=== PATIENT | female | born 1960 | race Caucasian/White ===

== ENCOUNTER 2025-04-02 13:43 | Outpatient (AMB) | payer OTHER, SELFPAY ==
--- NOTE | 2025-04-02 13:48 | A.OFFPC_ITS ---
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: No Accompanied by: Self / Same As Patient Allergies Sulfa (Sulfonamide Antibiotics) Allergy (Intermediate, Verified 04/02/25 13:52) nephrotic syndrome Medication List - Last Reconciled 04/02/25 by Taylor Monterroso MD atorvastatin (Lipitor) 10 mg PO BEDTIME lisinopril 5 mg PO DAILY Tobacco use date assessed: 04/02/25 Dental Screening Dental Screen Date: 04/02/25 Did you have a dental visit in the last 12 months?: Yes Did you have a dental problem in the last 6 months where you did not have access to dental care?: No Was dental information given to patient?: Patient has dentist HPI HPI Comments History of Present Illness Details The patient is a 64 year old female presenting to [facility] and for an annual physical examination. Hyperlipidemia: The patient was prescribed Lipitor but only began taking it approximately one month ago. She delayed starting the medication due to a contraindication with an antiviral she took for a COVID-19 infection, followed by travel to [facility] for a family emergency. Her mom recently. Hypertension: The patient reports she is compliant with taking her prescribed blood pressure medication. History of colon polyps: The patient underwent a colonoscopy one year ago where polyps were discovered. She reports being advised to have a follow-up in five years,, however she notes in the past she was scheduled for a three-year interval. History of hand injury: The patient has lingering symptoms from a prior fall, which she describes as tendinitis with nerve damage rather than arthritis. She performs exercises for her hand and was previously told by a specialist that she was fine after the initial injury. Health Maintenance: The patient is due for a screening mammogram, having not had one since 2022, and has not had a recent gynecological exam. She confirms she is up-to-date with her Shingrix, COVID-19, and flu vaccinations, with her last tetanus shot in 2017. She has a history of glaucoma but was reassured by her roll repairer that her intraocular pressures were fine. She denies any family history of osteoporosis. [facility] Medical History (Updated 04/02/25 @ 23:00 by Taylor Monterroso MD) Routine medical exam Routine gynecological examination GERD (gastroesophageal reflux disease) Mixed hyperlipidemia Primary hypertension Tubular adenoma Vertigo Surgical History (Updated 04/02/25 @ 12:51 by Taylor Monterroso MD) H/O hand surgery History of tonsillectomy H/O: hysterectomy History of colonoscopy (~01/04/24) Family History (Updated 04/02/25 @ 12:54 by Taylor Monterroso MD) Other Colon cancer Colon polyp Social History Housing: House Patient Tobacco Use Status: Never used Tobacco e-Cigarette/Vaping Use: Never Used Current occupational status: employed 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 1. Little interest or pleasure in doing things: not at all 2. Feeling down, depressed, or hopeless: not at all 3. Trouble falling or staying asleep, or sleeping too much: not at all 4. Feeling tired or having little energy: not at all 5. Poor appetite or overeating: not at all 6. Feeling bad about yourself - or that you are a failure or have let yourself or your family down: not at all 7. Trouble concentrating on things, such as reading the newspaper or watching television: not at all 8. Moving or speaking so slowly that other people could have noticed. Or the opposite - being so fidgety or restless that you have been moving around a lot more than usual: not at all 9. Thoughts that you would be better off or of hurting yourself in some way: not at all Total score: 0 Depression Screening Interpretation: Negative Depression Screening Done: Yes 44538 - PHQ-9 Billing: Yes Source: Developed by Drs. Artur Gates, Jovana Goodman, Juan Jose Rosa and colleagues, with an educational kaci from [employer]. Thrive Questionnaire Date Thrive assessed: 04/02/25 I am a: Patient What is your living situation today?: I choose not to answer this question Within the past 12 months, did the food you bought not last and you didn't have the money to get more?: I choose not to answer this question Within the past 12 months, did you worry whether your food would run out before you got money to buy more?: I choose not to answer this question Do you have trouble paying for medicines?: No Do you have trouble getting transportation to medical appointments?: No Do you have trouble paying your heating and electricity bill?: No Do you have trouble taking care of your child, family member or friend?: I choose not to answer this question Do you have trouble with day-to-day activities such as bathing, preparing meals, shopping, managing finances, etc.?: No Are you currently unemployed and looking for a job?: No Are you interested in more education?: No Please select the resources that you would like help with: None Currently or been in a relationship where the following occur: No concerns reported THRIVE Score: 0 AUDIT C Alcohol Use Questionnaire (AUDIT-C) 1. How often do you have a drink containing alcohol?: Never 3. How often do you have six or more drinks on one occasion?: Never Total Score: 0 JOSIANE-7 AMB Questionnaire JOSIANE-7 Date JOSIANE - 7 assessed: 04/02/25 Feeling nervous, anxious, or on edge: 0 = Not at all Not being able to stop or control worryin = Not at all Worrying too much about different things: 0 = Not at all Trouble relaxin = Not at all Being so restless that it is hard to sit still: 0 = Not at all Becoming easily annoyed or irritable: 0 = Not at all Feeling afraid as if something awful might happen: 0 = Not at all Total JOSIANE-7 score (0-4 normal; 5-9 mild; 10-14 moderate; 15-21 severe): 0 Source: Developed by Drs. Artur Gates, Jovana Goodman, Juan Jose Rosa and colleagues, with an educational kaci from [employer]. Review of Systems Narrative Review of Systems - General: Reports feeling well. - Cardiovascular: Denies shortness of breath. - Respiratory: Denies wheezing. - Musculoskeletal: Reports persistent tendinitis and nerve contraction in hand. - Extremities: Denies leg swelling. - Neurological: Denies recent vertigo spells. Physical exam (Primary Care) Vital Signs: Last Vital Signs Temp 96.9 F 04/02/25 13:50 Pulse 86 04/02/25 13:50 Resp 16 04/02/25 13:50 BP 132/82 04/02/25 13:50 Pulse Ox 96 04/02/25 13:50 Oxygen Delivery Method Room Air 04/02/25 13:50 BMI result Body Mass Index 28.3 Tobacco/Smoking Status: Tobacco use Status Tobacco use date assessed 04/02/25 04/02/25 13:52 Patient Tobacco Use Status Never used Tobacco 04/02/25 13:56 e-Cigarette/Vaping Use Never Used 04/02/25 13:56 PHQ-9: PHQ-9 Score PHQ-9: Total score 0 04/02/25 22:58 Depression Screening Interpretation: Negative Thrive Assessment: Date of Thrive Assessment Date Thrive assessed 04/02/25 04/02/25 13:52 Currently or been in a relationship where the following occur: No concerns reported Narrative Physical Exam - Gen: NAD - HEENT: Bilateral ear canals are clear. Oropharynx is clear. - Neck: Supple with no carotid bruits. No tenderness on palpation. - Cardiovascular: Regular rate and rhythm with a soft murmur noted - Lungs: Clear to auscultation bilaterally; no wheezing. - Abdomen: Normal bowel sounds, soft, non-tender. - Extremities: No pitting edema noted in bilateral lower extremities. Coding Level of Care Code Est Pt Prev Care 40-64y(93532) Add On Preventative Visit Only Diagnoses Routine medical exam Z00.00 Primary hypertension I10 Mixed hyperlipidemia E78.2 Additional Codes PHQ-9 - 82065 - PHQ-9 Billing: Yes ([id number]) Assessment & Plan Assessment & Plan (1) Routine medical exam: Code(s): Z00.00 - Encounter for general adult medical examination without abnormal findings Category: Medical (2) Primary hypertension: Code(s): I10 - Essential (primary) hypertension Category: Medical (3) Mixed hyperlipidemia: Code(s): E78.2 - Mixed hyperlipidemia Category: Medical Plan Assessment and Plan 1. Health Maintenance - The patient is a 64-year-old female here to re-establish care and for an annual exam. - She is due for several health screenings. - The plan includes providing orders for a screening mammogram and a referral to gynecology. - We will order comprehensive labs, including a renal panel, CBC, liver labs, thyroid panel, hemoglobin A1c, and urine microalbumin to be done soon. - Her lipid panel will be checked in 3 months. - Her immunizations are up to date. 2. Hyperlipidemia - The patient has been non-adherent with her statin therapy, having only started Lipitor one month prior to the visit. - The plan is to renew her prescription for Lipitor and recheck her lipid panel in 3 months to assess for efficacy after a consistent period of use. 3. Hypertension - The patient reports being adherent to her medication. - Her blood pressure in the office was 132/82 mmHg. - The plan is to renew her Lisinopril prescription and check a renal panel and urine microalbumin to monitor for any end-organ effects. Plan - Will renew prescriptions for Lisinopril and Lipitor - An order for a screening mammogram will be provided. - A referral will be placed for a routine gynecological examination. - The patient is advised to complete the non-fasting labs (renal panel, CBC, LFTs, thyroid, A1c, urine microalbumin) soon, as she is overdue for renal monitoring. - The patient should wait approximately 3 months before completing the lipid panel to allow for consistent Lipitor use. - Follow up in 1 year or sooner depending on results. Patient Instructions - Continue taking your lisinopril for blood pressure and Lipitor for cholesterol as prescribed. 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 Orders: Orders Complete Blood Count Auto Diff Today E78.2 - Mixed hyperlipidemia, I10 - Essential (primary) hypertension Comprehensive Met. Panel Today E78.2 - Mixed hyperlipidemia, I10 - Essential (primary) hypertension TSH reflex Free T4 Today E78.2 - Mixed hyperlipidemia, I10 - Essential (primary) hypertension Hemoglobin A1c Today E78.2 - Mixed hyperlipidemia, I10 - Essential (primary) hypertension MM screening mammo BI Today Z12.31 - Encounter for screening mammogram for malignant neoplasm of breast Lipid Panel Today E78.2 - Mixed hyperlipidemia, I10 - Essential (primary) hypertension Microalbumin, Random (w Creat) Today E78.2 - Mixed hyperlipidemia, I10 - Essential (primary) hypertension Referrals MANAGER [employer]ATE[employer]ETING Referral Z01.419 - Encounter for gynecological examination (general) (routine) without abnormal findings Medications: New lisinopril 5 mg PO DAILY 90 tabs 3RF 90 days atorvastatin (Lipitor) 10 mg PO BEDTIME 90 tabs 3RF
[2025-04-02 13:50] VITALS: BP 132/82; PULSE 86; RESP 16; TEMP 36.1; O2SAT 96; BMI 28.3
== END 2025-04-02 14:37 | disposition home or self-care (01) ==
LOC: HO.HMCHD 13:44
PROVIDERS: PCP Internal Medicine; Visit Provider Internal Medicine
DX: Z00.00 Encounter for general adult medical examination without abnormal findings (principal); I10 Essential (primary) hypertension; E78.2 Mixed hyperlipidemia

== ENCOUNTER → 2025-04-02 13:43 | Outpatient (BNVA) | payer OTHER, SELFPAY | PROVIDERS: PCP Internal Medicine; Visit Provider Internal Medicine | DX: Z00.00 Encounter for general adult medical examination without abnormal findings (principal); I10 Essential (primary) hypertension; E78.2 Mixed hyperlipidemia; Z13.31 Encounter for screening for depression; Z13.39 Encounter for screening examination for other mental health and behavioral disorders | CPT/HCPCS: 96127 ==